=== PATIENT | male | born 1970 | race Caucasian/White ===

== ENCOUNTER 2024-02-02 09:55 | Outpatient (CLI) | payer OTHER, SELFPAY ==
--- NOTE | 2024-02-02 11:30 | NEURO_ITS ---
Impression: # Complains of nocturnal paresthesia of hands. Non-diabetic. # Carpal Tunnel Syndrome, left more than right. # No ulnar neuropathy. # Mildly abnormal Needle/EMG exam in bilateral APB. Nerve Conduction Studies Anti Sensory Summary Table Stim Site NR Peak (ms) P-T Amp (?V) Site1 Site2 Delta-P (ms) Dist (cm) Farhan (m/s) Left Median Anti Sensory (2-3nd Digit) Wrist 6.3 13.9 Wrist 2-3nd Digit 6.3 14.0 22 Wrist 6.8 5.8 Wrist 2-3nd Digit 6.3 14.0 22 Right Median Anti Sensory (2-3nd Digit) Wrist 4.6 28.9 Wrist 2-3nd Digit 4.6 14.0 30 Wrist 5.3 25.3 Wrist 2-3nd Digit 4.6 14.0 30 Left Radial Anti Sensory (Base 1st Digit) Wrist 2.2 19.4 Wrist Base 1st Digit 2.2 0.0 Right Radial Anti Sensory (Base 1st Digit) Wrist 2.2 6.9 Wrist Base 1st Digit 2.2 0.0 Left Ulnar Anti Sensory (5th Digit) Wrist 3.0 23.9 Wrist 5th Digit 3.0 14.0 47 Right Ulnar Anti Sensory (5th Digit) Wrist 2.8 23.1 Wrist 5th Digit 2.8 14.0 50 Motor Summary Table Stim Site NR Onset (ms) O-P Amp (mV) Site1 Site2 Delta-0 (ms) Dist (cm) Farhan (m/s) Left Median Motor (Abd Poll Brev) Wrist 5.6 3.3 Elbow Wrist 6.0 31.0 52 Elbow 11.6 3.3 Right Median Motor (Abd Poll Brev) Wrist 4.4 5.0 Elbow Wrist 5.8 31.0 53 Elbow 10.2 4.5 Left Ulnar Motor (Abd Dig Minimi) Wrist 2.8 5.2 A Elbow Wrist 5.6 32.0 57 A Elbow 8.4 4.2 Right Ulnar Motor (Abd Dig Minimi) Wrist 2.6 7.5 A Elbow Wrist 5.5 32.0 58 A Elbow 8.1 5.9 F Wave Studies NR F-Lat (ms) L-R F-Lat (ms) Left Median (Mrkrs) (Abd Poll Brev) 32.18 0.08 Right Median (Mrkrs) (Abd Poll Brev) 32.11 0.08 Left Ulnar (Mrkrs) (Abd Dig Min) 31.99 0.28 Right Ulnar (Mrkrs) (Abd Dig Min) 31.72 0.28 EMG Side Muscle Nerve Root Ins Act Fibs Amp Dur Recrt Comment Right 1stDorInt Ulnar C8-T1 Nml Nml Nml Nml Nml Right Ext Indicis Radial (Post Int) C7-8 Nml Nml Nml Nml Nml Right Ext Digitorum Radial (Post Int) C7-8 Nml Nml Nml Nml Nml Right BrachioRad Radial C5-6 Nml Nml Nml Nml Nml Right PronatorTeres Median C6-7 Nml Nml Nml Nml Nml Right Abd Poll Brev Median C8-T1 Nml Nml Nml >12ms +1 Right ABD Dig Min Ulnar C8-T1 Nml Nml Nml Nml Nml Left 1stDorInt Ulnar C8-T1 Nml Nml Nml Nml Nml Left Ext Indicis Radial (Post Int) C7-8 Nml Nml Nml Nml Nml Left Ext Digitorum Radial (Post Int) C7-8 Nml Nml Nml Nml Nml Left BrachioRad Radial C5-6 Nml Nml Nml Nml Nml Left PronatorTeres Median C6-7 Nml Nml Nml Nml Nml Left Abd Poll Brev Median C8-T1 Nml Nml Nml >12ms +2 Left ABD Dig Min Ulnar C8-T1 Nml Nml Nml Nml Nml MTDD
== END 2024-02-02 09:56 | disposition home or self-care (01) ==
LOC: ANHNEURO 09:58
PROVIDERS: PCP Family Medicine; Visit Provider Nurse Practitioner Family
DX: G56.03 Carpal tunnel syndrome, bilateral upper limbs (principal); G56.00 Carpal tunnel syndrome, unspecified upper limb
CPT/HCPCS: 95886; 95911

== ENCOUNTER 2024-05-04 00:45 | Day surgery (SDC) | payer OTHER, SELFPAY ==
[2024-04-21 09:13] VITALS: BMI 34.9
--- NOTE | 2024-04-21 09:19 | PC.NURSE ---
Addendum entered by Lit Fried RN 04/22/24 15:24: Spoke with patient. He understands nothing to eat after midnight day of surgery but may have clear liquids until 0545am then nothing to drink until surgery. Original Note: Report to the Outpatient Waiting Room, entrance under the green pavilion located off [facility], at time _1145_ on date _05/04/24__. Planned Procedure Time: _1345.? Time changes happen often and if your time is changed the preop area will call you the afternoon before. - You and your visitor will be asked to self-screen and do not enter if you have any COVID symptoms. Please call surgeon if you need to reschedule. - A mask is optional within the hospital at this time. Patients may have clear liquids (water, carbonated beverages, clear teas, apple juice) until 8 hours prior to surgery with a maximum of 20 ounces. - No food from midnight until time of surgery and no smoking. This includes no chewing gum, candy or mints. - Infants may have breast milk until 4 hours before surgery, infant formula 6 hours prior to surgery. - Children will be allowed to drink immediately following surgery.? If applicable, please bring a bottle or sippy cup to assist with drinking. Juice, water, soda, and popsicles are readily available.? For infants on formula, please bring formula the day of surgery.? Pacifiers are allowed. Take only the following medications with a SIP of water on the morning of surgery: NONE DO NOT STOP ANY OF YOUR OTHER PRESCRIPTION MEDICATIONS PRIOR TO SURGERY EXCEPT THE FOLLOWING Medications to discontinue per physician __VITAMIN D Date to take last dose 04/29/24 Please no make-up, nail guatemalan, hairspray, perfume, deodorant, or body powder the day of surgery.? No jewelry (including any body piercings) or valuables the day of surgery, leave them at home.? Please take a shower or bath the night before, or the morning of, surgery with an antibacterial soap.? Wear comfortable, loose fitting clothing.? Children are encouraged to wear pajamas. - Jewelry must be removed prior to entering the operating room.? Rings and piercings that are not removed may be cut off. - The hospital will not accept responsibility for valuables.? - Please leave all valuables, including medications, at home the day of surgery. If you are going home after surgery, a licensed charter bus driver must drive you home.? - NO public transportation without another adult if you receive anesthesia. - We recommend that an adult stay with you for 24 hours following discharge. - We also recommend that you do not drive, make important decision, drink alcoholic beverages, or take any drugs that were not prescribed by your health care provider for at least 24 hours after your discharge time. For Pediatric surgeries, we recommend two adults accompany the child home. Hold all vitamins and supplements for 3 days per anesthesiologist. Follow any additional instructions given to you from your surgeon. Telephone instructions given to __PATIENT___and asked if any additional questions and then verbalized understanding. Patient advised to call surgeon office or pre surgery nurse liaison [phone] if any additional questions.
--- NOTE | 2024-05-04 07:02 | PM.HPGS ---
History of Present Illness History of Present Illness Chief complaint: left carpal tunnel syndrome Narrative: Patient seen and examined in pre-operative holding area. No interval change in medical history or symptoms. Patient recalls previous discussion of benefits and alternatives to procedure. Continues to desire to proceed with right endoscopic possible open carpal tunnel release, right cubital tunnel release, right first extensor compartment release. Reviewed procedure, post-op expectations and risks including but not limited to bleeding, infection, injury to tendon/nerve/vessel, decreased hand function, stiffness, RSD, no change or worsening of symptoms. I discussed the possible use of assistants and their participation in the case. Patient stated understanding and signed the consent form wishing to proceed. Review of Systems Review of Systems: All systems reviewed & are unremarkable except as noted in HPI and below PMFSH Past Medical History Medical History Dyslipidemia Vitamin D deficiency Essential hypertension Numbness and tingling Carpal tunnel syndrome Anxiety Low backache Panic attacks Hearing loss left ear Sleep trouble Chronic back pain Family History Family History Father Heart disease Grandparent Heart disease Mother Breast cancer Cervical cancer Sibling Hypertension Social History Social History Social History: Nasir is . 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 Smoking status: Never smoker Second hand tobacco smoke exposure: No Alcohol intake: current Alcohol use details: 1-2 PER MONTH Substance use: never Substance use type: does not use Do You Feel Safe in your Home?: Yes Lack of Transportation: No Lack of Food: Never True Current Housing: I Have Housing Concerned About Future Housing: No Difficulty Paying Gas/Electric Bills: No Difficulty Paying for Meds: No Currently Unemployed: No Education: Trade/Vocational Certificate Difficulty w/ Childcare or Family Care: No Living arrangements: with family Occupation/Education: occupation Gender identity (if verbalized by the patient): Male Agree to blood products: Yes Meds Home Medications and Allergies Home Medications ?Medication ?Instructions ?Recorded ?Confirmed ?Type cholecalciferol (vitamin D3) 50 50 mcg PO DAILY #90 caps 04/29/24 04/29/24 Rx mcg (2,000 unit) capsule lisinopril 5 mg tablet 5 mg PO DAILY #90 tabs 04/29/24 04/29/24 Rx Allergies Allergy/AdvReac Type Severity Reaction Status Date / Time No Known Allergies Allergy Verified 04/29/24 08:54 Exam Narrative: unchanged Assessment and Plan Assessment and plan (1) De Quervain's tenosynovitis, right: Code(s): M65.4 - Radial styloid tenosynovitis [de Quervain] Status: Acute Assessment and Plan: cont as above (2) Carpal tunnel syndrome: Qualifiers: Laterality: bilateral Qualified Code(s): G56.03 - Carpal tunnel syndrome, bilateral upper limbs Code(s): G56.00 - Carpal tunnel syndrome, unspecified upper limb Status: Acute (3) Ulnar neuropathy at elbow: Qualifiers: Laterality: unspecified laterality Qualified Code(s): G56.20 - Lesion of ulnar nerve, unspecified upper limb Code(s): G56.20 - Lesion of ulnar nerve, unspecified upper limb Status: Acute
--- NOTE | 2024-05-04 07:03 | P.OP_ITS ---
Procedure Note - Detailed Date of Procedure 05/04/24 Pre-op Diagnosis right CTS, CuTS, de quervains Post-op Diagnosis Same Procedure Performed right ectr, CuTR, 1st extensor compartment release Surgeon Neli Rucker MD [place] [employer] Machine Operator jonathan diehl pa-c Anesthesia MAC Description of Procedure INFORMED CONSENT: The patient was seen and examined and marked in the pre-op area.? The patient signed the consent form. PROCEDURE IN DETAIL:The patient taken back to OR on the stretcher in supine position. Time out performed with anesthesia, surgeon and staff agreeing on patient's name site and surgery to be performed SCDs were placed on the lower extremities and inflated. A tourniquet was placed on {right} upper extremity and antibiotics given IV After anesthesia administered sedation I injected {10}cc 1%lido with epi and 0.5% marcaine plain at the operative sites The?{right upper extremity}?was prepped and draped in sterile fashion the??{right upper extremity} was? exsanguinated with Esmarch bandage and tourniquet inflated to 250mmHg I made a transverse incision in the {right} volar distal wrist crease through skin and dermis with 15 blade scalpel.? Littler scissors spread down to antebrachial fascia. A small incision was made in antebrachial fascia allowing access to Carpal tunnel. I proceeded with sequential dilation staying in line with the ring finger and hugging the hook of the hamate.? I then used the synovial elevator to free any adhesions from the underside of the transverse carpal ligament. Next I was able to insert the Microaire endoscopic carpal tunnel device with direct visualization of the transverse fibers on the monitor and proceeded with complete segmental retrograde release of the ligament in its entirety.? I irrigated with normal saline and closed with 4-0 monocryl for dermis and subcuticular closure. I then made a longitudinal incision over right first extensor compartment through skin and dermis with 15 blade. I used littler scissors to spread down the the extensor sheath. Using 15 blade I made an initial incision on the dorsal aspect of the sheath. Littler scissors were used to spread above and below sheath proximally and distally and completed the release. Ragnell retractors were used to inspect APL and EPB tendons which were free of masses and synovitis and gliding smoothly in the sheath. No subsheaths were appreciated. I irrigated with normal saline and closed with 4-0 monocryl for dermis and subcuticular. Next, I next proceeded with making a longitudinal incision between two heads for flexor carpi ulnaris at end of {right} cubital tunnel with 15 blade scalpel.? Littler scissors were used to spread down to FCU fascia.? An incision was made in FCU fascia and ulnar nerve identified exiting cubital tunnel.? I proceeded with complete retrograde release of the cubital tunnel including 7cm proximal for the intermuscular septum.? The nerve appeared healthy with visible vaso nervorum.? There was no subluxation on full elbow range of motion. ? I irrigated with normal saline and closure with 4-0 monocryl for dermis and subcuticular. The wrist and elbow incisions were covered with Dermabond and the finger with xeroform, then 4x4s, nixon, and a posterior elbow and volar wrist splint for patient safety, security and comfort and secured with donna bandages after the tourniquet was let down noting the hand was warm and well perfused.? Patient awaken from anesthesia and transferred to recovery in stable condition Complications - none EBL- 1cc Disposition - home in stable conditions Jonathan Diehl PA-C was essential for positioning, retraction, closure and dressing placement [facility] Billing Surgery - Charge Forward: Surgery Billing ([id number] same for jonathan dasilva )
[2024-05-04 11:00] VITALS: BP 134/84; PULSE 73; RESP 16; TEMP 36.1; O2SAT 100; BMI 34.4
[2024-05-04] MEDS: LACTATED RINGERS 1,000 ML 30 ML IV CONT (11:30)
--- NOTE | 2024-05-04 11:43 | WPDANESEPPF ---
Anes - Initial Pre Proc Eval Procedure: Operation Date: 05/04/24 13:00 Proposed Procedures p Right Endoscopic Carpal Tunnel Release, Possible Open, Right Cubital Tunnel Release Right First Extensor Compartment Release - Neli Rucker MD Date/Time: 05/04/24 11:43 Surgeon: Neli Rucker MD Pre Op Diagnosis: left carpal tunnel syndrome Patient Data Age: 53 Gender: M Height: 1.85 m Weight: 120 kg Allergies Allergy/AdvReac Type Severity Reaction Status Date / Time No Known Allergies Allergy Verified 04/29/24 08:54 Home Medications ?Medication ?Instructions ?Recorded ?Confirmed ?Type cholecalciferol (vitamin D3) 50 50 mcg PO DAILY #90 caps 04/29/24 04/29/24 Rx mcg (2,000 unit) capsule lisinopril 5 mg tablet 5 mg PO DAILY #90 tabs 04/29/24 04/29/24 Rx Patient hx anesthesia problems: none Family hx anesthesia problems: none Results Review: All pre-operative results and documents have been reviewed as part of the pre-operative evaluation. [facility] Past Medical History Medical History Dyslipidemia Vitamin D deficiency Essential hypertension Numbness and tingling Carpal tunnel syndrome Anxiety Low backache Panic attacks Hearing loss left ear Sleep trouble Chronic back pain Family History Family History Father Heart disease Grandparent Heart disease Mother Breast cancer Cervical cancer Sibling Hypertension Social History Social History Social History: Nasir is . 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 Smoking status: Never smoker Second hand tobacco smoke exposure: No Alcohol intake: current Alcohol use details: 1-2 PER MONTH Substance use: never Substance use type: does not use Do You Feel Safe in your Home?: Yes Lack of Transportation: No Lack of Food: Never True Current Housing: I Have Housing Concerned About Future Housing: No Difficulty Paying Gas/Electric Bills: No Difficulty Paying for Meds: No Currently Unemployed: No Education: Trade/Vocational Certificate Difficulty w/ Childcare or Family Care: No Living arrangements: with family Occupation/Education: occupation Gender identity (if verbalized by the patient): Male Agree to blood products: Yes Anes - Eval Final PreProcedure Day of Procedure 05/04/24 11:43 Patient weight: obese Lungs: normal air movement Airway: Mallampati scale Neurological: alert and oriented Last oral intake: >/= 8 hours ASA classification: II Emergent: no Anesthetic plan: proceed Anesthesia type and monitoring: general GIVS and standard monitoring Results Review: All pre-operative results and documents have been reviewed as part of the pre-operative evaluation. HTN. Informed Consent: The patient's anesthetic plan and its attendant risks and benefits were discussed with the patient/family/POA. Questions were solicited and answers provided to the satisfaction of the patient/family/POA.
[2024-05-04] MEDS: ceFAZolin 2 GM/D5W 50 ML 2 GM/50 ML BAG IVPB (12:19)
[2024-05-04] MEDS: LIDO 1%/EPINEPHRINE 1:100,000 50 ML VIAL 10 ML INFILTRATE (12:25)
[2024-05-04 12:58] VITALS: BP 124/80; PULSE 80; RESP 14; O2SAT 98
[2024-05-04 13:25] VITALS: BP 127/76; PULSE 65; RESP 20
[2024-05-04 13:55] VITALS: BP 130/74; PULSE 71; RESP 20
[2024-05-04 14:15] VITALS: BP 122/72; PULSE 72; RESP 20
== END 2024-05-04 14:17 | disposition home or self-care (01) ==
PROVIDERS: PCP Family Medicine; Visit Provider Plastic Surgery
PROC: 01N54ZZ Release Median Nerve, Percutaneous Endoscopic Approach (ICD-10-PCS; CPT 29848; principal; 2024-05-04 13:00)
DX: G56.01 Carpal tunnel syndrome, right upper limb (principal); G56.21 Lesion of ulnar nerve, right upper limb; M65.4 Radial styloid tenosynovitis [de Quervain]; E66.9 Obesity, unspecified; Z68.34 Body mass index [BMI] 34.0-34.9, adult
CPT/HCPCS: 29848; 64718; 25000; J0690; J1100; J2003; J2004; J2250; J2405; J2704; J3010; J7120

== ENCOUNTER 2024-07-05 13:21 | Outpatient (CLI) | payer OTHER, SELFPAY ==
[2024-07-05 19:04] LABS: Influenza A QL RT-PCR Negative (Negative); Influenza B QL RT-PCR Negative (Negative); SARS-CoV-2 RNA PCR Negative (Negative)
== END 2024-07-05 13:22 | disposition home or self-care (01) ==
LOC: ANHGOSHLAB 13:22
PROVIDERS: PCP Family Medicine; Visit Provider Family Medicine
DX: J06.9 Acute upper respiratory infection, unspecified (principal); Z20.822 Contact with and (suspected) exposure to COVID-19
CPT/HCPCS: 87636

== ENCOUNTER 2024-07-27 01:30 | Day surgery (SDC) | payer OTHER, SELFPAY ==
[2024-07-13 14:40] VITALS: BMI 33.0
--- NOTE | 2024-07-13 14:41 | PC.NURSE ---
Report to the Outpatient Waiting Room, entrance under the green pavilion located off [facility], at time __1115__ on date ___07/27/24__. Planned Procedure Time: ___1315__.? Time changes happen often and if your time is changed the preop area will call you the afternoon before. - You and your visitor will be asked to self-screen and do not enter if you have any COVID symptoms. Please call surgeon if you need to reschedule. - A mask is optional within the hospital at this time. NPO (no food or drink) FOR 8 HOURS PRIOR TO SURGERY Take only the following medications with a SIP of water on the morning of surgery: NONE DO NOT STOP ANY OF YOUR OTHER PRESCRIPTION MEDICATIONS PRIOR TO SURGERY EXCEPT THE FOLLOWING Hold all vitamins and supplements for 3 days per anesthesiologist. Please no make-up, nail greenlandic, hairspray, perfume, deodorant, or body powder the day of surgery.? No jewelry (including any body piercings) or valuables the day of surgery, leave them at home.? Please take a shower or bath the night before, or the morning of, surgery with an antibacterial soap.? Wear comfortable, loose fitting clothing.? - Jewelry must be removed prior to entering the operating room.? Rings and piercings that are not removed may be cut off. - The hospital will not accept responsibility for valuables.? - Please leave all valuables, including medications, at home the day of surgery. If you are going home after surgery, a licensed milk truck driver must drive you home.? - NO public transportation without another adult if you receive anesthesia. - We recommend that an adult stay with you for 24 hours following discharge. - We also recommend that you do not drive, make important decision, drink alcoholic beverages, or take any drugs that were not prescribed by your health care provider for at least 24 hours after your discharge time. Follow any additional instructions given to you from your surgeon. Telephone instructions given to ___Nasir___and asked if any additional questions and then verbalized understanding. Patient advised to call surgeon office or pre surgery nurse liaison [phone] if any additional questions.
--- NOTE | 2024-07-27 06:56 | WPDHPUPDATE1 ---
History and Physical Update Update Date/Time: 07/27/24 06:56 Patient seen and examined in pre-operative holding area. No interval change in medical history or symptoms. Patient recalls previous discussion of benefits and alternatives to procedure. Continues to desire to proceed with left endoscpopic possible open carpal tunnel release, left cubital tunnel release and left first extensor compartment release. Reviewed procedure, post-op expectations and risks including but not limited to bleeding, infection, injury to tendon/nerve/vessel, decreased hand function, stiffness, RSD, no change or worsening of symptoms. I discussed the possible use of assistants and their participation in the case. Patient stated understanding and signed the consent form wishing to proceed.
--- NOTE | 2024-07-27 06:56 | W.PM.PROC2 ---
Procedure Note - Detailed Date of Procedure 07/27/24 Pre-op Diagnosis left carpal and cubital tunnel syndrome and left de quervains Post-op Diagnosis Same Procedure Performed left ectr, left CuTR and left first ectensor compartment releasee Surgeon Neli Rucker MD [employer] Equipment Mechanic jonathan diehl pa-c Anesthesia MAC Description of Procedure INFORMED CONSENT: The patient was seen and examined and marked in the pre-op area.? The patient signed the consent form. PROCEDURE IN DETAIL:The patient taken back to OR on the stretcher in supine position. Time out performed with anesthesia, surgeon and staff agreeing on patient's name site and surgery to be performed SCDs were placed on the lower extremities and inflated. A tourniquet was placed on {left} upper extremity and antibiotics given IV After anesthesia administered sedation I injected {10}cc 1%lido with epi and 0.5% marcaine plain at the operative sites The?{left upper extremity}?was prepped and draped in sterile fashion the??{left upper extremity} was? exsanguinated with Esmarch bandage and tourniquet inflated to 250mmHg I made a transverse incision in the {left} volar distal wrist crease through skin and dermis with 15 blade scalpel.? Littler scissors spread down to antebrachial fascia. A small incision was made in antebrachial fascia allowing access to Carpal tunnel. I proceeded with sequential dilation staying in line with the ring finger and hugging the hook of the hamate.? I then used the synovial elevator to free any adhesions from the underside of the transverse carpal ligament. Next I was able to insert the Microaire endoscopic carpal tunnel device with direct visualization of the transverse fibers on the monitor and proceeded with complete segmental retrograde release of the ligament in its entirety.? I irrigated with normal saline and closed with 4-0 monocryl for dermis and subcuticular closure. Next, I proceeded with making a longitudinal incision over the left first extensor compartment through skin and dermis with 15 blade scalpel. Littler scissors were used to spread through subq down to the sheath. The dorsal radial sensory nerve was identified and protected throughout the procedure. I made an incision along dorsal aspect of 1st extensor compartment with 15 blade then spread above it and below it proximally and distally and completed transection entirely. Krish APL and multiple slips of EPB tendons were inspected and free of masses and synovitis. no subsheath was identified. I irrigated iwth normal saline and closed with 4-0 monocryl for dermis and subcuticular. I next proceeded with making a longitudinal incision between two heads for flexor carpi ulnaris at end of {left} cubital tunnel with 15 blade scalpel.? Littler scissors were used to spread down to FCU fascia.? An incision was made in FCU fascia and ulnar nerve identified exiting cubital tunnel.? I proceeded with complete retrograde release of the cubital tunnel including 7cm proximal for the intermuscular septum and involved taking down anconeus with bipolar cautery.? The nerve appeared healthy with visible vaso nervorum.? There was no subluxation on full elbow range of motion. ? I irrigated with normal saline and closure with 3-0 vicryl for dermis and 4-0 monocryl for subcuticular. The incisions were covered with Dermabond then 4x4s, nixon, and a posterior elbow and volar wrist splint for patient safety, security and comfort and secured with donna bandages after the tourniquet was let down noting the hand was warm and well perfused.? Patient awaken from anesthesia and transferred to recovery in stable condition Complications - none EBL- 1cc Disposition - home in stable conditions Jonathan Diehl PA-C was essential for positioiing, retraction, closure and dressing placement [facility] Billing Surgery - Charge Forward: Surgery Billing ([id number] same for jonathan adding modifier )
[2024-07-27 09:05] VITALS: BP 134/83; PULSE 76; RESP 18; TEMP 36.4; O2SAT 95
[2024-07-27] MEDS: LACTATED RINGERS 1,000 ML 30 ML IV CONT (09:25)
--- NOTE | 2024-07-27 10:28 | WPDANESEPPF ---
Anes - Initial Pre Proc Eval Procedure: Operation Date: 07/27/24 10:45 Proposed Procedures p Left Endoscopic Carpal Tunnel Release, Possible Open, Left Cubital Tunnel Release, Left First Extensor Compartment Release - Neli Rucker MD Date/Time: 07/27/24 10:28 Surgeon: Neli Rucker MD Pre Op Diagnosis: left carpal and cubital tunnel syndrome Patient Data Age: 54 Gender: M Height: 1.85 m Weight: 117.7 kg Last Vital Signs Temp 36.4 C 07/27/24 09:05 Pulse 76 07/27/24 09:05 Resp 18 07/27/24 09:05 BP 134/83 07/27/24 09:05 Pulse Ox 95 07/27/24 09:05 O2 Del Method Room Air 07/27/24 09:05 Allergies Allergy/AdvReac Type Severity Reaction Status Date / Time No Known Allergies Allergy Verified 07/19/24 07:56 Home Medications ?Medication ?Instructions ?Recorded ?Confirmed ?Type cholecalciferol (vitamin D3) 50 50 mcg PO DAILY #90 caps 04/29/24 07/13/24 Rx mcg (2,000 unit) capsule lisinopril 5 mg tablet 5 mg PO DAILY #90 tabs 04/29/24 07/13/24 Rx tramadol 50 mg tablet 50 mg PO Q6H PRN pain #12 tabs 07/27/24 Rx Patient hx anesthesia problems: none Family hx anesthesia problems: none Results Review: All pre-operative results and documents have been reviewed as part of the pre-operative evaluation. [facility] Past Medical History Medical History Dyslipidemia Vitamin D deficiency Essential hypertension Numbness and tingling Carpal tunnel syndrome Anxiety Low backache Panic attacks Hearing loss left ear Sleep trouble Chronic back pain Surgical History Surgical History History of carpal tunnel surgery of right wrist (~04/2024) Family History Family History Father Heart disease Grandparent Heart disease Mother Breast cancer Cervical cancer Sibling Hypertension Social History Social History Social History: Nasir is . 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 Smoking status: Never smoker Second hand tobacco smoke exposure: No Alcohol intake: current Alcohol use details: 1-2 PER MONTH Substance use: never Substance use type: does not use Do You Feel Safe in your Home?: Yes Lack of Transportation: No Lack of Food: Never True Current Housing: I Have Housing Concerned About Future Housing: No Difficulty Paying Gas/Electric Bills: No Difficulty Paying for Meds: No Currently Unemployed: No Education: Trade/Vocational Certificate Difficulty w/ Childcare or Family Care: No Living arrangements: with family Occupation/Education: occupation Gender identity (if verbalized by the patient): Male Agree to blood products: Yes Anes - Eval Final PreProcedure Day of Procedure 07/27/24 10:28 Patient weight: obese Heart: regular rate and rhythm Lungs: clear to auscultation Airway: Mallampati scale class II Neurological: alert and oriented Last oral intake: >/= 8 hours ASA classification: II Emergent: no Anesthetic plan: proceed Anesthesia type and monitoring: general GIVS and standard monitoring Results Review: All pre-operative results and documents have been reviewed as part of the pre-operative evaluation. Informed Consent: The patient's anesthetic plan and its attendant risks and benefits were discussed with the patient/family/POA. Questions were solicited and answers provided to the satisfaction of the patient/family/POA.
[2024-07-27] MEDS: ceFAZolin 2 GM/D5W 50 ML 2 GM/50 ML BAG IVPB (10:44)
[2024-07-27] MEDS: BUPivacaine HCL 0.5% 10 ML AMP 15 ML INFILTRATE (10:50)
[2024-07-27] MEDS: LIDO 1%/EPINEPHRINE 1:100,000 50 ML VIAL 15 ML INFILTRATE (10:55)
[2024-07-27 11:34] VITALS: BP 115/74; PULSE 74; RESP 12; O2SAT 97
[2024-07-27 12:00] VITALS: BP 112/68; PULSE 55; RESP 16
[2024-07-27] MEDS: oxyCODONE HCL (*CRX) 5 MG TAB IR PO (12:02)
[2024-07-27 12:26] VITALS: BP 115/77; PULSE 58; RESP 16
== END 2024-07-27 12:40 | disposition home or self-care (01) ==
PROVIDERS: PCP Family Medicine; Visit Provider Plastic Surgery
PROC: 01N54ZZ Release Median Nerve, Percutaneous Endoscopic Approach (ICD-10-PCS; CPT 29848; principal; 2024-07-27 10:45)
DX: G56.02 Carpal tunnel syndrome, left upper limb (principal); G56.22 Lesion of ulnar nerve, left upper limb; M65.4 Radial styloid tenosynovitis [de Quervain]; E78.5 Hyperlipidemia, unspecified; E55.9 Vitamin D deficiency, unspecified; I10 Essential (primary) hypertension; F41.9 Anxiety disorder, unspecified; F41.0 Panic disorder [episodic paroxysmal anxiety]; G89.29 Other chronic pain; M54.9 Dorsalgia, unspecified; E66.9 Obesity, unspecified; Z68.34 Body mass index [BMI] 34.0-34.9, adult; Z79.891 Long term (current) use of opiate analgesic; Z98.890 Other specified postprocedural states; Z80.3 Family history of malignant neoplasm of breast; Z80.49 Family history of malignant neoplasm of other genital organs; Z82.49 Family history of ischemic heart disease and other diseases of the circulatory system
CPT/HCPCS: 64718; 29848; 25000; A9270; J0690; J1885; J2004; J2250; J2405; J2704; J3010; J7120